=== PATIENT | female | born 1960 | race African-American/Black ===

== ENCOUNTER 2017-03-10 10:25 | Inpatient (IN) | payer OTHER ==
[~2017-03-10] VITALS: Ht 180.3 cm; Wt 95.7 kg
[~2017-03-10 10:25] MED LIST: ASPIRIN EC325 M1; FIORICET 50-321 EACH PO; LISINOPRIL10 MG; NORVASC10 MG; ULTRAM 50MG TAB50 MG; VICODIN 5-5001 EACH PO; VIMPAT50 MG PO
[2017-03-10 11:59] VITALS: BP 146/82
[2017-03-10 14:40] LABS: HEMATOCRIT 20.2 % (37.0-47.0); MCH 16.7 pg (26.0-34.0); MCHC 28.9 g/dL (28.0-37.0); MCV 57.7 fL (80.0-100.0); RBC 3.51 mil/uL (4.20-5.00); RDW 20.7 % (10.5-14.5); WBC 4.1 thou/uL (4.0-11.0)
[2017-03-10 14:49] LABS: CALCIUM 9.6 mg/dL (8.5-10.1); CREATININE 0.7 mg/dL (0.6-1.0); POTASSIUM 3.5 mmol/L (3.5-5.1)
[2017-03-10 14:51] LABS: HEMOGLOBIN 5.8 gm/dL (12.0-15.0)
[2017-03-10 14:54] LABS: ALBUMIN 3.7 g/dL (3.4-5.0); TOTAL BILIRUBIN 0.3 mg/dL (<0.1-1.0); TOTAL PROTEIN 6.7 g/dL (6.4-8.2)
[2017-03-10 15:20] LABS: FERRITIN 3 ng/mL (8-252)
[2017-03-10 15:32] VITALS: BP 136/87
[2017-03-10 15:33] LABS: % SATURATION 2 % (20-39); IRON 11 ug/dL (50-170); TIBC 453 ug/dL (250-450); UIBC 442 ug/dL
[2017-03-10 17:49] VITALS: BP 127/69; BP 136/80
[2017-03-10 20:00] VITALS: BP 140/81
[2017-03-10 20:15] LABS: URINE BILIRUBIN NEGATIVE (Negative); URINE BLOOD NEGATIVE (Negative); URINE COLOR YELLOW; URINE GLUCOSE-RANDOM* NEGATIVE (Negative); URINE KETONES NEGATIVE (Negative); URINE NITRITE NEGATIVE (Negative); URINE PROTEIN (DIPSTICK) NEGATIVE (Negative); URINE UROBILINOGEN 0.2 E.U./dl (0.2-1.0)
[2017-03-10 21:51] VITALS: BP 134/76; BP 136/80; BP 140/82
[2017-03-11 03:59] LABS: CALCIUM 9.2 mg/dL (8.5-10.1); CREATININE 0.7 mg/dL (0.6-1.0); POTASSIUM 3.7 mmol/L (3.5-5.1)
[2017-03-11 04:00] VITALS: BP 141/74
[2017-03-11 04:04] LABS: HEMATOCRIT 25.4 % (37.0-47.0); MCH 19.9 pg (26.0-34.0); MCHC 31.3 g/dL (28.0-37.0); RDW 28.6 % (10.5-14.5); WBC 4.9 thou/uL (4.0-11.0)
[2017-03-11 04:07] LABS: MCV 63.5 fL (80.0-100.0)
[2017-03-11 09:08] VITALS: BP 150/82
[2017-03-11] MEDS ORDERED: SENNA8.6 MG PO (11:13)
[2017-03-11] MEDS ORDERED: IRON325 PO (11:22)
[2017-03-11 12:45] VITALS: BP 150/82
[2017-03-11 13:54] VITALS: BP 150/82
== END 2017-03-11 14:19 | disposition home or self-care (01) | DRG 812 ==
LOC: 4S 10:25
PROVIDERS: Internal Medicine; Nurse Practitioner
PROC: 30233N1 Transfusion of Nonautologous Red Blood Cells into Peripheral Vein, Percutaneous Approach (ICD-10-PCS; principal; 2017-03-10)
DX: D62 Acute posthemorrhagic anemia (principal); M54.9 Dorsalgia, unspecified; G57.90 Unspecified mononeuropathy of unspecified lower limb; G89.29 Other chronic pain; I10 Essential (primary) hypertension; N92.0 Excessive and frequent menstruation with regular cycle; Z88.6 Allergy status to analgesic agent; Z88.2 Allergy status to sulfonamides; Z80.9 Family history of malignant neoplasm, unspecified; Z83.3 Family history of diabetes mellitus; Z82.49 Family history of ischemic heart disease and other diseases of the circulatory system; Z87.891 Personal history of nicotine dependence; Z79.82 Long term (current) use of aspirin; Z79.899 Other long term (current) drug therapy; Z86.73 Personal history of transient ischemic attack (TIA), and cerebral infarction without residual deficits
CPT/HCPCS: 10102